=== PATIENT | male | born 1940 | race Hispanic/Latino ===

== ENCOUNTER 2018-06-24 05:30 | Day surgery (SDC) | payer OTHER ==
[2018-06-22 10:56] VITALS: BP 169/84
[2018-06-22 11:16] LABS: BASOPHILS % (AUTO) 0.5 % (0.0-5.0); EOSINOPHILS % (AUTO) 2.7 % (0.0-8.0); HEMATOCRIT 37.6 % (42-54); LYMPHOCYTES % (AUTO) 29.3 % (21.0-51.0); MEAN CORPUSCULAR HEMOGLOBIN 29.1 pg (27.0-33.0); MEAN CORPUSCULAR HGB CONC 33.3 g/dL (32.0-36.0); MEAN CORPUSCULAR VOLUME 87.5 fL (79-99); MONOCYTES % (AUTO) 6.7 % (3.0-13.0); NEUTROPHILS % (AUTO) 60.8 % (40.0-77.0); PLATELET COUNT (AUTO) 295 K/uL (130-400); RED CELL DISTRIBUTION WIDTH 13.3 % (11.0-15.5); WHITE BLOOD COUNT (AUTO) 6.6 K/uL (4.8-10.8)
[2018-06-22 11:18] LABS: APPEARANCE,URINE Clear (CLEAR); BILIRUBIN,URINE Negative (NEGATIVE); COLOR,URINE Yellow (YELLOW); GLUCOSE, URINE (UA) Negative (NEGATIVE); KETONES,URINE Negative (NEGATIVE); LEUKOCYTE ESTERASE ,URINE Negative (NEGATIVE); NITRATE,URINE Negative (NEGATIVE); OCCULT BLOOD,URINE Negative (NEGATIVE); PROTEIN,URINE Negative (NEGATIVE); UROBILINOGEN,URINE 0.2 mg/dL (0.2-1.0)
[2018-06-22 11:25] LABS: POTASSIUM 4.3 mmol/L (3.5-5.1)
[2018-06-22 11:37] LABS: INR 0.97 (0.85-1.15); PARTIAL THROMBOPLASTIN TIME 29.1 SEC (26.3-35.5); PROTHROMBIN TIME 10.2 SEC (9.6-11.6)
[~2018-06-24] VITALS: Ht 190.5 cm; Wt 99.8 kg
[2018-06-24] VITALS (10 sets, daily range): BP systolic 128–176; BP diastolic 72–82
[~2018-06-24 05:30] MED LIST: ASPI-555 PO; LISI-613 PO; PANT40TA25 PO; SIMV40TA5 PO; SODIUM CHLORIDE 0.9% 500ML 500 ML IV SCH; TAMS0.4C32 PO
[2018-06-24] MEDS ORDERED: SODIUM CHLORIDE 0.9% 1000ML 1,000 ML IV ONE (06:30)
[2018-06-24] MEDS ORDERED: HYDRALAZINE HCL 20 MG/ML VIAL ONE (08:06)
[2018-06-24] MEDS ORDERED: LIDOCAINE HCL 1% 20 ML VIAL ONE (08:31)
--- NOTE | 2018-06-24 11:45 | NUR ---
verified with nurse josé wilkins, no chest line (late entry)
--- NOTE | 2018-06-24 11:50 | NUR ---
received report from josé wilkins, pt stable no distress noted.
== END 2018-06-24 13:10 | disposition home or self-care (01) ==
LOC: DAH 05:30
PROVIDERS: ATTEND Internal Medicine Cardiovascular Disease
DX: I35.0 Nonrheumatic aortic (valve) stenosis (principal); Z82.49 Family history of ischemic heart disease and other diseases of the circulatory system; Z83.3 Family history of diabetes mellitus; Z79.899 Other long term (current) drug therapy; Z79.01 Long term (current) use of anticoagulants; E78.5 Hyperlipidemia, unspecified; I10 Essential (primary) hypertension; F17.210 Nicotine dependence, cigarettes, uncomplicated; Z68.38 Body mass index [BMI] 38.0-38.9, adult
CPT/HCPCS: 36415; 71045; 80048; 81003; 85025; 85610; 85730; 93005; 93460; A4606; C1760 ×2; C1769; C1894 ×4; J0360; J1644; J7030; Q9965

== ENCOUNTER → 2021-12-29 | Outpatient (CLI) | payer OTHER ==
[~2021-12-29] MED LIST changes: -ASPI-555 PO; +ASPI-556 PO; -LISI-613 PO; +LISI20TA24 PO; -PANT40TA25 PO; +PANT40TA54 PO; +SIMV-46 PO; -SIMV40TA5 PO; -SODIUM CHLORIDE 0.9% 500ML 500 ML IV SCH
== END | disposition home or self-care (01) ==
LOC: SHCH 07:43
PROVIDERS: ATTEND Internal Medicine Cardiovascular Disease
DX: I08.0 Rheumatic disorders of both mitral and aortic valves (principal); E78.5 Hyperlipidemia, unspecified
CPT/HCPCS: 93306

== ENCOUNTER → 2023-02-11 | Outpatient (CLI) | payer OTHER ==
[~2023-02-11] MED LIST changes: +IOHEXOL 350 MG/ML 100ML INFUS..BTL IV ONE
== END | disposition home or self-care (01) ==
LOC: RAH 10:41
PROVIDERS: ATTEND Internal Medicine Gastroenterology
DX: C16.2 Malignant neoplasm of body of stomach (principal); N28.1 Cyst of kidney, acquired
CPT/HCPCS: 71270; 74178; Q9967

== ENCOUNTER 2023-03-03 09:41 | Day surgery (SDC) | payer OTHER ==
[2023-03-03] VITALS (11 sets, daily range): BP systolic 110–167; BP diastolic 47–73; PULSE 43–96; RESP 14–16
[~2023-03-03] VITALS: Ht 188 cm; Wt 92.1 kg
[~2023-03-03 09:41] MED LIST changes: +0.9%NACL 1000ML 1,000 ML IV ONE; -ASPI-556 PO; +FERS325 PO; -IOHEXOL 350 MG/ML 100ML INFUS..BTL IV ONE; +SUCR1TAB2 PO; +VITAMIN B12 SL
[2023-03-03] MEDS ORDERED: PROPOFOL 10 MG/ML 20ML VIAL IV ONE ×2 (12:15)
== END 2023-03-03 13:45 | disposition home or self-care (01) ==
LOC: DAH 09:41 → ENDO 09:41
PROVIDERS: ATTEND Internal Medicine Gastroenterology
DX: C16.2 Malignant neoplasm of body of stomach (principal); K44.9 Diaphragmatic hernia without obstruction or gangrene; K31.89 Other diseases of stomach and duodenum; K29.50 Unspecified chronic gastritis without bleeding; K57.30 Diverticulosis of large intestine without perforation or abscess without bleeding; K64.1 Second degree hemorrhoids; R19.5 Other fecal abnormalities; D64.9 Anemia, unspecified; K59.00 Constipation, unspecified; I10 Essential (primary) hypertension; E78.5 Hyperlipidemia, unspecified; Z86.010 Personal history of colon polyps; Z87.891 Personal history of nicotine dependence; Z72.89 Other problems related to lifestyle
CPT/HCPCS: 43237; 43236; J7030 ×2; J2704 ×2; A4620; A4215 ×2; A4223; A7002; A4222; A4221; A4663; A4216; A4606; J3490

== ENCOUNTER 2023-03-11 06:30 | Day surgery (SDC) | payer OTHER ==
[2023-03-09 11:38] LABS: APPEARANCE,URINE CLEAR (CLEAR); BILIRUBIN,URINE NEGATIVE (NEGATIVE); COLOR,URINE LIGHT-YELLOW (YELLOW); GLUCOSE, URINE (UA) NEGATIVE (NEGATIVE); KETONES,URINE NEGATIVE (NEGATIVE); LEUKOCYTE ESTERASE ,URINE NEGATIVE Leu/uL (NEGATIVE); NITRATE,URINE NEGATIVE (NEGATIVE); OCCULT BLOOD,URINE NEGATIVE (NEGATIVE); PH,URINE 6.5 (5.0-8.0); PROTEIN,URINE NEGATIVE (NEGATIVE); UROBILINOGEN,URINE 0.2 mg/dL (0.2-1.0)
[2023-03-09 11:39] LABS: ADD UA MICROSCOPIC NO
[2023-03-09 11:39] LABS: BASOPHILS # (AUTO) 0.03 K/uL (0.00-0.20); BASOPHILS % (AUTO) 0.6 % (0.0-5.0); EOSINOPHILS # (AUTO) 0.15 K/uL (0.00-0.70); EOSINOPHILS % (AUTO) 2.9 % (0.0-8.0); HEMATOCRIT 33.5 % (42-54); IMMATURE GRANULOCYTE ABSOLUTE 0.02 K/uL (0-1); LYMPHOCYTES # (AUTO) 1.7 K/uL (1.0-4.8); LYMPHOCYTES % (AUTO) 33.1 % (21.0-51.0); MEAN CORPUSCULAR HEMOGLOBIN 27.6 pg (27.0-33.0); MEAN CORPUSCULAR VOLUME 88.9 fL (79-99); MONOCYTES # (AUTO) 0.4 K/uL (0.1-1.0); MONOCYTES % (AUTO) 7.4 % (3.0-13.0); NEUTROPHILS # (AUTO) 2.8 K/uL (1.8-7.7); NEUTROPHILS % (AUTO) 55.6 % (40.0-77.0); PLATELET COUNT (AUTO) 297 K/uL (130-400); RED BLOOD CELL COUNT(AUTO) 3.77 MIL/uL (4.50-6.20); RED CELL DISTRIBUTION WIDTH 16.3 % (11.0-15.5); WHITE BLOOD COUNT (AUTO) 5.1 K/uL (4.8-10.8)
[2023-03-09 11:48] LABS: POTASSIUM 4.5 mmol/L (3.5-5.1)
[2023-03-09 11:51] LABS: INR 0.95 (0.85-1.15); PROTHROMBIN TIME 11.1 SEC (9.6-11.6)
[2023-03-09 11:52] LABS: PARTIAL THROMBOPLASTIN TIME 29.7 SEC (26.3-35.5)
[2023-03-09 12:03] LABS: B-TYPE NATRIURETIC PEPTIDE 169 pg/mL (0-100)
[2023-03-09 12:12] VITALS: BP 167/69; PULSE 51; RESP 19
[~2023-03-11] VITALS: Ht 190.5 cm; Wt 93.3 kg
[2023-03-11] VITALS (8 sets, daily range): BP systolic 124–155; BP diastolic 58–76; PULSE 48–55; RESP 14–16
[~2023-03-11 06:30] MED LIST changes: -0.9%NACL 1000ML 1,000 ML IV ONE
[2023-03-11] MEDS ORDERED: HEPARIN 10,000 UNIT/10ML (1,000 UNIT/ML) VIAL ONE (08:04)
[2023-03-11] MEDS ORDERED: LIDOCAINE HCL 400MG/20ML VIAL ONE (08:04)
[2023-03-11] MEDS ORDERED: IOHEXOL 350 MG/ML 100ML INFUS..BTL IV ONE (08:05)
[2023-03-11] MEDS ORDERED: NITROGLYCERIN 50MG/D5W 250ML 1 BOT ONE (08:05)
[2023-03-11] MEDS ORDERED: 0.9%NACL 1000ML 1,000 ML IV ONE (08:12)
[2023-03-11] MEDS ORDERED: IOHEXOL-350 50ML VIAL IV ONE (08:14)
[2023-03-11] MEDS ORDERED: FENTANYL CITRATE PF 50 MCG/1 ML 2ML VIAL ONE (08:37)
[2023-03-11] MEDS ORDERED: MIDAZOLAM HCL 1 MG/ML 2ML VIAL ONE (08:38)
[2023-03-11] MEDS ORDERED: DEXTROSE 50%-WATER 50 ML DISP.SYRIN IV PRN (10:00)
[2023-03-11] MEDS ORDERED: GLUCAGON 1MG KIT 1 MG ML IM PRN (10:00)
== END 2023-03-11 14:05 | disposition home or self-care (01) ==
LOC: DAH 06:30
PROVIDERS: ATTEND Internal Medicine Cardiovascular Disease
DX: I35.0 Nonrheumatic aortic (valve) stenosis (principal); I25.10 Atherosclerotic heart disease of native coronary artery without angina pectoris; I10 Essential (primary) hypertension; E78.5 Hyperlipidemia, unspecified; Z82.49 Family history of ischemic heart disease and other diseases of the circulatory system; Z83.3 Family history of diabetes mellitus; Z87.891 Personal history of nicotine dependence; Z79.01 Long term (current) use of anticoagulants; Z79.899 Other long term (current) drug therapy
CPT/HCPCS: 80048; 83880; 85025; 85610; 85730; 81003; 36415; 71045; 93005; 93460; C1769 ×2; C1894 ×2; C1760; J3490 ×2; J7030; J1644 ×2; Q9967 ×2; A4215; A4222; A4663; A4216; A4606; Q9965; A4223 ×3; J2250; J3010

== ENCOUNTER → 2023-05-10 | Outpatient (CLI) | payer OTHER ==
[~2023-05-10] MED LIST changes: +ERYT1OIN7 OD; +IOHEXOL-350 50ML VIAL IV ONE; +OFLO5DRO OD
== END | disposition home or self-care (01) ==
LOC: RAH 09:41
PROVIDERS: ATTEND Internal Medicine
DX: S05.91XD Unspecified injury of right eye and orbit, subsequent encounter (principal); J32.2 Chronic ethmoidal sinusitis; J33.9 Nasal polyp, unspecified; G31.9 Degenerative disease of nervous system, unspecified; R90.82 White matter disease, unspecified; X58.XXXD Exposure to other specified factors, subsequent encounter
CPT/HCPCS: 70450; 70482; Q9967

== ENCOUNTER 2023-06-03 09:35 | Day surgery (SDC) | payer OTHER ==
[2023-06-03] VITALS (11 sets, daily range): BP systolic 116–159; BP diastolic 60–74; PULSE 45–57; RESP 14–20
[~2023-06-03] VITALS: Ht 190.5 cm; Wt 75.7 kg
[~2023-06-03 09:35] MED LIST changes: +CYAN50LO PO; -ERYT1OIN7 OD; +FAMO40TA7 PO; -FERS325 PO; +FINA5TAB41 PO; -IOHEXOL-350 50ML VIAL IV ONE; -OFLO5DRO OD; -SUCR1TAB2 PO; -VITAMIN B12 SL
[2023-06-03] MEDS ORDERED: 0.9%NACL 1000ML 1,000 ML IV ONE (10:21)
[2023-06-03] MEDS ORDERED: PROPOFOL 10 MG/ML 20ML VIAL IV ONE (13:26)
[2023-06-03] MEDS ORDERED: LIDOCAINE HCL 1% 20 ML VIAL ONE (13:26)
== END 2023-06-03 14:47 | disposition home or self-care (01) ==
LOC: ENDO 09:35 → DAH 09:35 → ENDO 14:47
PROVIDERS: ATTEND Internal Medicine Gastroenterology
DX: R13.10 Dysphagia, unspecified (principal); K22.2 Esophageal obstruction; K29.50 Unspecified chronic gastritis without bleeding; K91.89 Other postprocedural complications and disorders of digestive system; E78.5 Hyperlipidemia, unspecified; I10 Essential (primary) hypertension; Z86.010 Personal history of colon polyps; Z98.890 Other specified postprocedural states; Z98.84 Bariatric surgery status; Z87.891 Personal history of nicotine dependence; Z72.89 Other problems related to lifestyle; Z85.028 Personal history of other malignant neoplasm of stomach
CPT/HCPCS: 43220; 43202; J7030 ×2; J2704; A4620; A4215 ×2; A4223; A4657; A7002; A4222; A4221; A4663; A4606; 43453; J3490

== ENCOUNTER 2023-09-01 06:44 | Day surgery (SDC) | payer OTHER ==
[2023-09-01] VITALS (11 sets, daily range): BP systolic 113–161; BP diastolic 54–78; PULSE 48–56; RESP 13–16
[~2023-09-01] VITALS: Ht 190.5 cm; Wt 71.2 kg
[2023-09-01] MEDS: 0.9%NACL 1000ML 1,000 ML IV ONE (07:20)
[2023-09-01] MEDS ORDERED: PROPOFOL 10 MG/ML 20ML VIAL IV ONE (07:51)
== END 2023-09-01 09:25 | disposition home or self-care (01) ==
LOC: ENDO 06:44 → DAH 06:44 → ENDO 09:25
PROVIDERS: ATTEND Internal Medicine Gastroenterology
DX: R13.10 Dysphagia, unspecified (principal); K22.2 Esophageal obstruction; R63.4 Abnormal weight loss; I10 Essential (primary) hypertension; E78.5 Hyperlipidemia, unspecified; Z86.010 Personal history of colon polyps; Z98.890 Other specified postprocedural states; Z98.84 Bariatric surgery status; Z87.891 Personal history of nicotine dependence; Z72.89 Other problems related to lifestyle; Z98.0 Intestinal bypass and anastomosis status; Z68.20 Body mass index [BMI] 20.0-20.9, adult
CPT/HCPCS: 43249; 82948; 43239; J7030 ×2; J2704; A4620; A4215; A4223; A4657; A7002; A4222; A4221; A4663; A4606; C1726; C1725; J3490

== ENCOUNTER 2023-10-06 06:28 | Day surgery (SDC) | payer OTHER ==
[~2023-10-06] VITALS: Ht 190.5 cm; Wt 66.7 kg
[2023-10-06] VITALS (11 sets, daily range): BP systolic 106–136; BP diastolic 54–66; PULSE 50–54; RESP 15–18
[~2023-10-06 06:28] MED LIST changes: +FERR-72 PO
[2023-10-06] MEDS ORDERED: FOLI0.4T6 PO (08:14)
[2023-10-06] MEDS: 0.9%NACL 1000ML 1,000 ML IV ONE (08:17)
[2023-10-06] MEDS ORDERED: PROPOFOL 10 MG/ML 20ML VIAL IV ONE (09:34)
== END 2023-10-06 10:50 | disposition home or self-care (01) ==
LOC: ENDO 06:28 → DAH 06:28 → ENDO 10:50
PROVIDERS: ATTEND Internal Medicine
DX: K22.2 Esophageal obstruction (principal); R63.4 Abnormal weight loss; K57.90 Diverticulosis of intestine, part unspecified, without perforation or abscess without bleeding; K64.9 Unspecified hemorrhoids; I10 Essential (primary) hypertension; E78.5 Hyperlipidemia, unspecified; N40.0 Benign prostatic hyperplasia without lower urinary tract symptoms; Z86.010 Personal history of colon polyps; Z82.49 Family history of ischemic heart disease and other diseases of the circulatory system; Z83.3 Family history of diabetes mellitus; Z82.3 Family history of stroke; Z80.59 Family history of malignant neoplasm of other urinary tract organ; Z72.89 Other problems related to lifestyle; Z87.891 Personal history of nicotine dependence; Z79.899 Other long term (current) drug therapy; Z98.84 Bariatric surgery status; Z98.890 Other specified postprocedural states
CPT/HCPCS: 43249; J7030 ×2; J2704; A4620; A4215; A4223; A7002; A4222; A4221; A4663; A4606; C1726; J3490

== ENCOUNTER 2023-10-27 06:05 | Day surgery (SDC) | payer OTHER ==
[2023-10-27] VITALS (12 sets, daily range): BP systolic 106–147; BP diastolic 48–72; PULSE 49–58; RESP 14–21
[~2023-10-27] VITALS: Ht 190.5 cm; Wt 64.0 kg
[~2023-10-27 06:05] MED LIST changes: +FOLI0.4T6 PO
[2023-10-27] MEDS: 0.9%NACL 1000ML 1,000 ML IV ONE (07:34)
[2023-10-27] MEDS ORDERED: 0.9% NACL 500ML IV.SOLN 0 ML IV ONE (08:08)
[2023-10-27] MEDS ORDERED: 0.9%NACL 1000ML 1,000 ML IV ONE (08:32)
== END 2023-10-27 10:45 | disposition home or self-care (01) ==
LOC: ENDO 06:05 → DAH 06:05 → ENDO 10:45
PROVIDERS: ATTEND Internal Medicine Gastroenterology
DX: R13.10 Dysphagia, unspecified (principal); K22.2 Esophageal obstruction; R63.4 Abnormal weight loss; K59.00 Constipation, unspecified; K91.89 Other postprocedural complications and disorders of digestive system; I10 Essential (primary) hypertension; E78.5 Hyperlipidemia, unspecified; Z86.010 Personal history of colon polyps; Z87.891 Personal history of nicotine dependence; Z72.89 Other problems related to lifestyle; Z80.0 Family history of malignant neoplasm of digestive organs; Z68.1 Body mass index [BMI] 19.9 or less, adult
CPT/HCPCS: 43239; J7030; A4620; A4215 ×2; A4223; A4222; A4221; A4663; A4606; J7040

== ENCOUNTER → 2023-11-13 | Outpatient (CLI) | payer OTHER | END | disposition home or self-care (01) | LOC: SHCH 09:57 | PROVIDERS: ATTEND Internal Medicine Cardiovascular Disease | DX: I08.3 Combined rheumatic disorders of mitral, aortic and tricuspid valves (principal) | CPT/HCPCS: 93306 ==

== ENCOUNTER → 2023-11-19 | Outpatient (CLI) | payer OTHER | END | disposition home or self-care (01) | LOC: RAH 08:11 | PROVIDERS: ATTEND Internal Medicine Gastroenterology | DX: K22.2 Esophageal obstruction (principal) | CPT/HCPCS: 74240 ==